=== PATIENT | male | born 1970 | race Caucasian/White ===

== ENCOUNTER → 2023-11-03 14:49 | Outpatient (REF) | payer BC, SELFPAY | LOC: HWRAD 14:49 | PROVIDERS: ATTENDING PHYSICIAN Nurse Practitioner Adult Health | DX: R10.12 Left upper quadrant pain (principal); R07.81 Pleurodynia; E66.01 Morbid (severe) obesity due to excess calories; Z87.891 Personal history of nicotine dependence | CPT/HCPCS: 71260; Q9967 ==